=== PATIENT | male | born 1955 | race Caucasian/White ===

== ENCOUNTER 2023-12-16 07:20 | Emergency (ER) | payer MEDICARE, SELFPAY ==
[2023-12-16 07:24] VITALS: BP 141/81
--- NOTE | 2023-12-16 07:56 | ED.MUSCINJ ---
HPI-Injury
General
Chief Complaint: Musculo-Skeletal Complaint
Source: patient and spouse
Exam Limitations: none
Time Seen by Provider: 12/16/23 07:34
Nursing documentation reviewed up to this point in time: agreed with
Travel History
Have you had any contact with someone who has COVID-19?: No
Do you have any symptoms of coronavirus? Fever > 100 degrees, chills, cough, shortness of breath, sore throat, loss of taste or smell, muscle aches, or headache?: No
History of Present Illness-Injury
Initial Injury comments:
68-year-old male presents emerged from complaining of left ankle pain. He twisted his ankle inverting it yesterday at 8 AM. He was walking. He then fell, but denies any other injury.
Past History
Past History
ED Past Medical History: CVA, HTN and Hypercholesterolemia
ED Past Surgical History: Other (hernia repair umbilical hernia repair, Vasectomy. )
Social History
Tobacco: Non-smoker
Alcohol: Occasional
Personal:
Living: with family
Family History
Family History: Cancer; Negative Diabetes, Hypertension, Early CAD, Asthma or Sudden
Review of Systems
Review of Systems
Allergies reviewed?: Yes
All Other Systems: Not applicable
Constitutional: Reports no symptoms
EENT: Reports no symptoms
Respiratory: Reports no symptoms
Cardiac: Reports no symptoms
ABD/GI: Reports no symptoms
: Reports no symptoms
Musculoskeletal: Reports joint pain and joint swelling
Skin: Reports no symptoms
Neurological: Reports no symptoms
Endocrine: Reports no symptoms
Hematologic/Lymphatic: Reports no symptoms
Psychiatric: Reports no symptoms
Phy Exam
Physical Exam
Physical Exam:
Physical Exam
General: no apparent distress, not acutely ill
Neck: supple. no meningeal signs. normal posterior pharynx
Heart: equal radial pulses.
HEENT: Pupils equal round reactive to light, EOMI
Lungs: no acute respiratory distress.
Abdomen: Nondistended
Neuro: alert and oriented. no focal neurological deficits cranial nerves II through XII intact
Skin: no rash
Psychiatric: well kept. interactive and cooperative
Extremities: Left ankle edema, mild tenderness at left lateral malleolus no calf tenderness. negative homans. good distal pulses
Injury Course
Orders/Labs/Results
Orders:
Orders
12/16/23 07:28
Ankle, left 3 view CR [CR Ankle - Left Min 3 Views ] Urgent
Comment:
Reason For Exam: injury
12/16/23 07:55
Air Splint Left-Treatment ONCE
MDM/Problems Addressed
Differential Diagnosis Includes:
Ankle fracture, ankle sprain
MDM/Problems Addressed:
68-year-old male with left ankle sprain, no other injuries noted. Ankle stirrup placed. Follow-up with orthopedics as needed. Return precautions given.
Chronic conditions affecting care: HTN
*Radiology
Radiology exam reviewed: preliminary read by ED provider (Left ankle x-ray no fracture seen)
*Pulse Oximetry
Patient hypoxic: no
*EKG
Interpreted by ED Provider?: NA
*Cheese Blender Interpretation
Rate: Cheese Blender- N/A
*Critical Care Note
Total Time (30-74mins, 75-104mins- exclusive of procedures): Not Applicable
Patient Management
Social determinants of health affecting care: Living situation and Strong social support
Escalation/DeEscalation of care consider admission/obs:
Admit not indicated
ED Attending Note
-
Portions of this chart may have been created with voice recognition software.� Occasional wrong word or��sound alike� substitutions may have occurred due to the inherent limitations of voice recognition software.
Discharge Plan
Departure
Patient Disposition: Home (Routine Discharge)
Date of Disposition: 12/16/23
Time of Disposition: 08:00
Patient with high blood pressure during this ER visit?: Yes
Condition: Good
Discharge Problem:
Inversion sprain of left ankle
Instructions: Ankle Sprain ED, BLOOD PRESSURE
Prescriptions:
No Action
multivitamin [One Daily] 1 EACH tablet
1 ea PO DAILY
atorvastatin 40 MG tablet
80 mg PO QPM
aspirin 81 MG tablet,delayed release (DR/EC)
81 mg PO DAILY
ramipril 5 MG capsule
10 mg PO DAILY
alfuzosin 10 MG tablet extended release 24 hr
10 mg PO HS
Interventions
Interventions:
*Risk Screen - Suicide Last Done: 12/16/23 07:26
*General Assessment Last Done: 12/16/23 07:26
*Neglect/Abuse Screening Last Done: 12/16/23 07:26
Discharge Date and Time
Print Language: KOREAN
== END 2023-12-16 08:27 | disposition home or self-care (01) ==
LOC: EMR 07:20
PROVIDERS: EMERGENCY PHYSICIAN Emergency Medicine; FAMILY PHYSICIAN Family Medicine
DX: S93.402A Sprain of unspecified ligament of left ankle, initial encounter (principal); X50.1XXA Overexertion from prolonged static or awkward postures, initial encounter; Y93.01 Activity, walking, marching and hiking; M25.572 Pain in left ankle and joints of left foot; I10 Essential (primary) hypertension; E78.00 Pure hypercholesterolemia, unspecified; Z86.73 Personal history of transient ischemic attack (TIA), and cerebral infarction without residual deficits; Z82.49 Family history of ischemic heart disease and other diseases of the circulatory system
CPT/HCPCS: 99283; 73610

== ENCOUNTER → 2024-03-29 06:34 | Outpatient (REF) | payer MEDICARE, SELFPAY | LOC: MRI 3T 06:34 | PROVIDERS: ATTENDING PHYSICIAN Specialist; FAMILY PHYSICIAN Family Medicine | DX: G31.84 Mild cognitive impairment of uncertain or unknown etiology (principal) | CPT/HCPCS: 70551 ==

== ENCOUNTER → 2024-04-26 07:14 | Outpatient (REF) | payer MEDICARE, SELFPAY | LOC: HWRCS 07:14 | PROVIDERS: ATTENDING PHYSICIAN Internal Medicine; FAMILY PHYSICIAN Family Medicine | DX: I10 Essential (primary) hypertension (principal) | CPT/HCPCS: 93306 ==

== ENCOUNTER → 2025-04-23 14:16 | Outpatient (REF) | payer MEDICARE, SELFPAY | LOC: DHSLP 14:16 | PROVIDERS: ATTENDING PHYSICIAN Internal Medicine; FAMILY PHYSICIAN Family Medicine | DX: G47.33 Obstructive sleep apnea (adult) (pediatric) (principal) | CPT/HCPCS: 95800 ==

== ENCOUNTER → 2025-07-14 06:45 | Outpatient (REF) | payer MEDICARE, SELFPAY ==
[2025-07-14 08:54] LABS: Hematocrit 45.4 % (39.0-52.0); Hemoglobin 14.8 g/dL (13.0-18.0); Mean Corp Hgb Conc. 32.6 g/dL (33.0-37.0); Mean Corpuscular Volume 88.8 fL (80.0-94.0); Platelet Count 216 10^3/uL (130-400); Red Cell Dist. Width 14.8 % (11.5-14.5)
[2025-07-14 09:50] LABS: Blood Urea Nitrogen 26 mg/dl (9-20); Calcium 9.9 mg/dl (8.4-10.2); Carbon Dioxide 27 mmol/L (22-30); Chloride 106 mmol/L (98-107); Glucose 101 mg/dl (70-99); Potassium 4.8 mmol/L (3.5-5.1); Sodium 139 mmol/L (135-145); eGFR > 60.00
== END ==
LOC: SDSPAT 06:45
PROVIDERS: ATTENDING PHYSICIAN Surgery; FAMILY PHYSICIAN Family Medicine; OTHER PHYSICIAN Internal Medicine Cardiovascular Disease
DX: Z01.818 Encounter for other preprocedural examination (principal)
CPT/HCPCS: 80048; 85027; 93005